=== PATIENT | male | born 1930 | race Caucasian/White ===

== ENCOUNTER 2017-03-22 15:04 | Inpatient (IN) | payer OTHER ==
[~2017-03-22] VITALS: Ht 175.3 cm; Wt 58.5 kg
[~2017-03-22 15:04] MED LIST: ADULT LOW DOSE81 MG PO
[2017-03-22 16:24] LABS: ABSOLUTE BASOPHILS 0.1 thou/uL (0.0-0.2); ABSOLUTE EOSINOPHILS 0.4 thou/uL (0.0-0.7); ABSOLUTE LYMPHOCYTES 1.7 thou/uL (0.8-5.3); ABSOLUTE MONOCYTES 1.2 thou/uL (0.0-1.2); BASOPHILS 1.1 %; EOSINOPHILS 3.5 %; HEMATOCRIT 39.6 % (42.0-52.0); HEMOGLOBIN 13.1 gm/dL (14.0-18.0); LYMPHOCYTES 14.7 %; MCH 32.3 pg (26.0-34.0); MCHC 33.1 g/dL (28.0-37.0); MCV 97.5 fL (80.0-100.0); MONOCYTES 10.8 %; MPV 7.3 fl. (7.2-11.1); NUCLEATED RBCS 0 /100WBC; PLATELET COUNT* 256 thou/uL (150-400); POLYS 69.9 %; RBC 4.06 mil/uL (4.50-6.00); RDW-CV 15.3 % (10.5-14.5); WBC 11.4 thou/uL (4.0-11.0)
[2017-03-22 16:45] LABS: ALBUMIN 4.1 g/dL (3.4-5.0); CALCIUM 9.4 mg/dL (8.5-10.1); CREATININE 2.3 mg/dL (0.6-1.3); POTASSIUM 4.4 mmol/L (3.5-5.1); TOTAL BILIRUBIN 0.8 mg/dL (<0.1-1.0); TOTAL PROTEIN 7.6 g/dL (6.4-8.2)
[2017-03-22] MEDS ORDERED: ADVAIR HFA 230M12 GM INH (17:35)
[2017-03-22] MEDS ORDERED: PENTOXIFYLLINE400 MG PO (17:37)
[2017-03-23 00:50] VITALS: BP 145/85
[2017-03-23 04:54] LABS: CALCIUM 8.6 mg/dL (8.5-10.1); CREATININE 2.2 mg/dL (0.6-1.3); POTASSIUM 4.3 mmol/L (3.5-5.1)
[2017-03-23 05:10] LABS: ABSOLUTE BASOPHILS 0.1 thou/uL (0.0-0.2); ABSOLUTE EOSINOPHILS 0.5 thou/uL (0.0-0.7); ABSOLUTE NEUTROPHILS 6.2 thou/uL (1.6-8.1); BASOPHILS 1.1 %; EOSINOPHILS 5.5 %; HEMOGLOBIN 12.4 gm/dL (14.0-18.0); LYMPHOCYTES 20.2 %; MCH 32.6 pg (26.0-34.0); MCHC 33.4 g/dL (28.0-37.0); MCV 97.4 fL (80.0-100.0); NUCLEATED RBCS 0 /100WBC; PLATELET COUNT* 232 thou/uL (150-400); POLYS 63.2 %; RDW-CV 15.2 % (10.5-14.5); WBC 9.8 thou/uL (4.0-11.0)
[2017-03-23 07:30] VITALS: BP 184/58
[2017-03-23 07:50] VITALS: BP 112/70
[2017-03-23 08:30] VITALS: BP 137/96
[2017-03-23 16:44] VITALS: BP 136/83
--- NOTE | 2017-03-23 17:19 | 2DMMODE ---
[place] [address] 2 D/M-MODE ECHOCARDIOGRAM Name: KRISTIN PEDERSON Room: [address] IN [facility]#: [id number] Admission: 03/22/17 Attend Phys: Justin Lemus Discharge: Date of : 32 Date of Service: 03/23/17 1718 Report #: [id number] THIS REPORT FOR: //name// APPROVED REPORT Study performed: 03/23/2017 15:32:10 EXAM: Comprehensive 2D, Doppler, and color-flow Echocardiogram Patient Location: In-Patient Room #: [facility] Status: routine BSA: 1.71 HR: 90 bpm BP: 145/85 mmHg Rhythm: NSR Other Information Study Quality: Good Indications Congestive Heart Failure Left Ventricle The left ventricle is normal size. There is normal LV segmental wall motion. Mild concentric left ventricular hypertrophy. Left ventricular systolic function is normal. The left ventricular ejection fraction is within the normal range. LVEF is 60-65%. Grade I - abnormal relaxation pattern. Right Ventricle The right ventricle is normal size. The right ventricular systolic function is normal. Atria The left atrium size is normal. Right atrium is moderately dilated. Aortic Valve The aortic valve is normal in structure. No aortic regurgitation is present. There is no aortic valvular stenosis. Mitral Valve The mitral valve is normal in structure. Trace mitral regurgitation. No evidence of [place] [address] 2 D/M-MODE ECHOCARDIOGRAM Name: KRISTIN PEDERSON Room: [address] IN M.R.#: [id number] Admission: 03/22/17 Attend Phys: Justin Lemus Discharge: Date of : 32 Date of Service: 03/23/171717 Report #: [id number] Tricuspid Valve The tricuspid valve is normal in structure. Moderate tricuspid regurgitation. estimated pa pressure 70 mm Hg Pulmonic Valve The pulmonary valve is normal in structure. There is no pulmonic valvular regurgitation. Great Vessels Aortic root is mildly dilated. IVC is normal in size and collapses with >50% inspiration Pericardium There is no pericardial effusion. <Conclusion> LVEF is 60-65%. Mild concentric left ventricular hypertrophy. Right atrium is moderately dilated. Moderate tricuspid regurgitation. estimated pa pressure 70 mm Hg <ELECTRONICALLY SIGNED> By: Nathan Shah MD, FACC 03/23/171717 17 17 Nathan Shah MD, FACC /INF
[2017-03-24 00:23] VITALS: BP 158/78
[2017-03-24 04:30] LABS: ABSOLUTE BASOPHILS 0.1 thou/uL (0.0-0.2); ABSOLUTE EOSINOPHILS 0.3 thou/uL (0.0-0.7); ABSOLUTE LYMPHOCYTES 1.3 thou/uL (0.8-5.3); ABSOLUTE MONOCYTES 0.9 thou/uL (0.0-1.2); ABSOLUTE NEUTROPHILS 8.6 thou/uL (1.6-8.1); BASOPHILS 0.7 %; EOSINOPHILS 2.8 %; HEMATOCRIT 32.1 % (42.0-52.0); LYMPHOCYTES 11.3 %; MCH 32.1 pg (26.0-34.0); MCHC 32.6 g/dL (28.0-37.0); MCV 98.7 fL (80.0-100.0); MONOCYTES 8.4 %; MPV 7.7 fl. (7.2-11.1); NUCLEATED RBCS 0 /100WBC; PLATELET COUNT* 185 thou/uL (150-400); POLYS 76.8 %; RBC 3.25 mil/uL (4.50-6.00); RDW-CV 14.9 % (10.5-14.5); WBC 11.3 thou/uL (4.0-11.0)
[2017-03-24 04:33] LABS: HEMOGLOBIN 10.4 gm/dL (14.0-18.0)
[2017-03-24 04:48] LABS: CREATININE 2.1 mg/dL (0.6-1.3); POTASSIUM 4.7 mmol/L (3.5-5.1)
[2017-03-24 07:44] VITALS: BP 151/91
--- NOTE | 2017-03-24 10:51 | CON ---
[address] [address] CONSULTATION Name: DACIAKRISTIN Louis Room: [address] IN .R.#: [id number] Admission: 03/22/17 Attend Phys: Gonzalo Cheng Discharge: Date of : 31 Report #: [id number] THIS REPORT FOR: //name// CC: Nathan Lemus DATE OF SERVICE: 03/23/2017 INFECTIOUS DISEASE CONSULTATION ATTENDING PHYSICIAN: Justin Lemus DO. REASON FOR CONSULTATION: Osteomyelitis involving the third digit, left foot, in the setting of compromised perfusion with probable osteomyelitis. HISTORY OF PRESENT ILLNESS: Chart reviewed, the patient examined. This is an 86-year-old with known vasculopathy, including peripheral disease, who developed a distal plantar ulceration involving the third left toe. Over the course of the last 3-4 weeks, he had an increasing pain associated with the limb in general. It is not clear whether he has fevers. Notes a dry eschar, without significant drainage. He has had significant anorexia and a fairly lengthy period of gradual weight loss. Denies significant pulmonary-related complaints, although he does utilize oxygen at night in the setting of COPD. No GI-related complaints either. He was admitted and undergoing vascular evaluation. Doppler studies consistent with occlusion of the kbh-up-mrgraj superficial femoral arteries bilaterally. There is a 5.9-cm abdominal aortic aneurysm, which has increased and there is a large amount of peripheral mural thrombus as well. He has been empirically started on antibiotics with vancomycin. ALLERGIES: None known. MEDICATIONS: Currently as noted above, the vancomycin, p.r.n. analgesics, antiemetics, zolpidem, ipratropium and albuterol inhaler and nicotine patch. PAST MEDICAL HISTORY: COPD, peripheral vascular disease, and now psychiatric history. SOCIAL HISTORY: He still smokes 4-5 cigarettes a day. No ethanol. No illicit drug use. FAMILY HISTORY: Noncontributory. REVIEW OF SYSTEMS: Denies any changes overall in pulmonary or gastrointestinal status. PHYSICAL EXAMINATION: [place] [address] CONSULTATION Name: DACIAKRISTIN Louis Room: [address] IN [facility]#: [id number] Admission: 03/22/17 Attend Phys: Gonzalo Cheng Discharge: Date of : 31 Report #: [id number] GENERAL: He appears his stated age. He is perhaps mildly undernourished, evidence of the weight loss. He is pleasant and cooperative. He is not encephalopathic. He is in knip-as-onqfdpus distress. VITAL SIGNS: Temperature 98.3, pulse 83, respirations 16 and blood pressure 145/85. SKIN: Warm. HEENT: Otherwise, unremarkable. He has nasal cannula oxygen in place. NECK: Supple. LUNGS: Diminished breath sounds. He has a few crackles at the bases posteriorly. HEART: Regular. There is a soft systolic murmur. ABDOMEN: Soft, nontender and nondistended. No peritoneal signs. EXTREMITIES: Distal left lower extremity has moderate degree of inflammation noted superficially. He has edema 1 to 2+. He is not exquisitely tender, but has a distal third involving the plantar aspect. Mild degree of hammertoe. There is primarily a dry eschar. There is no particular odor, no drainage. GENITOURINARY: Deferred. RECTAL: Deferred. LABORATORY DATA: NT-proBNP of 3170. Dopplers, as described above, probably aortic aneurysm via Doppler. Prealbumin at 22.7. CBC: White count 9.8, H and H 12.4 and 37.0 and platelets 232,000. Electrolytes, sodium 144, potassium 4.4, chloride 105, bicarbonate is elevated at 37, anion gap of 2 and BUN and creatinine 49 and 2.3, repeat was 46 and 2.2. Estimated GFR of 29. LFTs unremarkable. Albumin of 4.1. Total protein 7.6. ASSESSMENT AND PLAN: Chronic ulceration involving the third distal toe in the setting of a fairly significant limb ischemia. Awaiting Vascular Surgery recommendations. He voiced concern about any PICC procedures given his age and may be a candidate for percutaneous approach with angioplasty or stenting. We will continue the empiric antibiotics. There is a vancomycin level pending. We will adjust therapy as needed. At this point, I do not think there is anything that should be reasonable to culture if in fact they try to do some debridements. We will try to obtain a deep culture. We will go ahead and get plain films of the foot. However, simply trauma and/or ischemia could give you similar-type pictures that of osteomyelitis. <ELECTRONICALLY SIGNED> By: Alex Almaraz MD 03/24/17 1051 1456 0005Alex Almaraz MD /xiomara
[2017-03-24 12:29] LABS: URINE BILIRUBIN NEGATIVE (Negative); URINE BLOOD NEGATIVE (Negative); URINE CLARITY CLEAR; URINE COLOR YELLOW; URINE GLUCOSE-RANDOM NEGATIVE (Negative); URINE KETONES NEGATIVE (Negative); URINE LEUKOCYTES-REFLEX NEGATIVE (Negative); URINE NITRITE-REFLEX NEGATIVE (Negative); URINE PROTEIN NEGATIVE (Negative); URINE SPECIFIC GRAVITY 1.025 (1.005-1.030); URINE UROBILINOGEN 0.2 E.U./dl (0.2-1.0)
[2017-03-24 14:26] VITALS: BP 151/91
[2017-03-24] MEDS ORDERED: MINOCIN100 MG PO (14:34)
[2017-03-24] MEDS ORDERED: NORCO 5-325 TA1 EACH PO (14:35)
[2017-03-24] MEDS ORDERED: NICOTINE TRANSD21 M1 TRANSDERM (14:35)
[2017-04-01] MEDS ORDERED: PLAVIX 75 MG TA75 M1 PO (12:24)
[2017-04-01] MEDS ORDERED: ASPIR 8181 MG PO (12:25)
[2017-04-01] MEDS ORDERED: MINOCIN100 MG PO (12:26)
[2017-04-01] MEDS ORDERED: APAP650 PO (12:27)
--- NOTE | 2017-04-01 16:00 | CON ---
[address] [address] CONSULTATION Name: DACIAKRISTIN Louis Room: [address] IN [facility].#: [id number] Admission: 03/22/17 Attend Phys: Gonzalo Cheng Discharge: 03/24/17 Date of : 31 Report #: [id number] THIS REPORT FOR: //name// CC: Nathan Lemus DICTATED BY: Natasha SARAH DATE OF SERVICE: 03/22/2017 REASON FOR CONSULTATION: Peripheral artery disease, left lower extremity ischemia, abdominal aortic aneurysm. HISTORY OF PRESENT ILLNESS: The patient is a pleasant 86-year-old female who presented to the hospital today with complaints of left foot pain. He reports his pain has significantly worsened over the past 3 weeks. He has noted discoloration of his toes, more notably in the left third toe. He reports significant left foot pain with his legs elevated or even with sitting. He reports he has to stand to relieve his discomfort. He does very little walking, which he attributes to chronic lung disease with shortness of air as well as claudication. He reports he was evaluated at approximately 10 years ago at [facility] for an abdominal aortic aneurysm as well as peripheral artery disease and opted against treatment at that time. He denies any nausea, vomiting, fevers, chills or worsening shortness of breath. He does wear oxygen at night for his chronic obstructive pulmonary disease. We have been asked to evaluate the patient and give our opinion regarding his ischemic left foot as well as his abdominal aortic aneurysm and his chronic peripheral artery disease. PAST MEDICAL HISTORY: 1. Abdominal aortic aneurysm. 2. Peripheral artery disease. 3. Chronic obstructive pulmonary disease. 4. Right inguinal hernia. 5. Arthritis. PAST SURGICAL HISTORY: Right inguinal hernia repair. ALLERGIES: No known drug allergies. HOME MEDICATIONS: Please refer to the MAR. FAMILY HISTORY: Reviewed, noncontributory due to his advanced age. SOCIAL HISTORY: He is , lives with his . [place] [address] CONSULTATION Name: DACIAKRISTIN Louis Room: [address]#: [id number] Admission: 03/22/17 Attend Phys: Gonzalo Cheng Discharge: 03/24/17 Date of : 31 Report #: [id number] REVIEW OF SYSTEMS: A 12-point review of systems has been reviewed and is negative except for the above-mentioned in the history of present illness. PHYSICAL EXAMINATION: VITAL SIGNS: Reviewed and on the chart. He is afebrile. GENERAL: He is alert and oriented, in no acute distress. He is thin. HEENT: Head is normocephalic, atraumatic. NECK: Supple without jugular venous distention. HEART: Distant heart tones, regular rate. CHEST: Lung sounds are diminished throughout. No wheezing or rhonchi noted. ABDOMEN: Soft, nontender. He has a palpable pulsatile mass on the left side of his abdomen. Positive bowel sounds. EXTREMITIES: Palpable bilateral radial and femoral pulses with dopplerable bilateral dorsalis pedis pulses. He has a 2+ edema to the right lower extremity, 1+ edema on the left. He has a purple discoloration of his left toes, most notably of the third toe with a small superficial ulcer on the distal left third toe tip. His feet are neuromotor intact. NEUROLOGIC: Alert and oriented with no focal neurologic deficits. LABORATORY DATA: Hemoglobin 13.1, hematocrit 39.6, white blood cell count 11.4, platelets 256. Sodium 144, potassium 4.4, chloride 105, CO2 of 37, BUN 49, creatinine 2.3, glucose is 83. ASSESSMENT AND PLAN: 1. Peripheral artery disease with ischemia of the left foot. We will obtain bilateral arterial ultrasounds as well as ABIs for further evaluation of his arterial perfusion. His creatinine is 2.3, so we were unable to obtain a CT angiogram with runoff at this time. He is not wanting to undergo any major surgical intervention, although he is willing to consider minimally invasive procedures such as an arteriogram. Dr. Branch will evaluate the patient as well and adjust treatment plan as indicated. Likely, he will need an arteriogram at this admission. 2. Abdominal aortic aneurysm, previously measured 4.7 cm in 2010. We will obtain an abdominal ultrasound for further evaluation. He denies any current abdominal or back pain. His aneurysm is palpable, but nontender. 3. Chronic obstructive pulmonary disease. 4. Tobaccoism. We thank you for the opportunity to participate in the care of the patient. Please feel free to contact our office with any questions or concerns. <ELECTRONICALLY SIGNED> By: Sammy Branch DO 04/01/17 1600 1711 0419Sammy Branch DO /nt
[2017-04-05] MEDS ORDERED: CENTRUM SILVER1 EAC2 PO (12:55)
== END 2017-03-24 15:00 | disposition home or self-care (01) | DRG 300 ==
LOC: M.ORTHSURG 15:04
PROVIDERS: Specialist; ADMIT Internal Medicine
DX: I70.202 Unspecified atherosclerosis of native arteries of extremities, left leg (principal); N18.4 Chronic kidney disease, stage 4 (severe); I50.32 Chronic diastolic (congestive) heart failure; I71.4 Abdominal aortic aneurysm, without rupture; J44.9 Chronic obstructive pulmonary disease, unspecified; M19.90 Unspecified osteoarthritis, unspecified site; F17.210 Nicotine dependence, cigarettes, uncomplicated; L97.529 Non-pressure chronic ulcer of other part of left foot with unspecified severity

== ENCOUNTER → 2017-04-01 | Outpatient (CLI) | payer OTHER ==
[~2017-04-01] VITALS: Ht 175.3 cm; Wt 59.0 kg
[~2017-04-01] MED LIST changes: +ADVAIR HFA 230M12 GM INH; +APAP650 PO; +ASPIR 8181 MG PO; +CENTRUM SILVER1 EAC2 PO; +MINOCIN100 MG PO; +NICOTINE TRANSD21 M1 TRANSDERM; +NORCO 5-325 TA1 EACH PO; +PENTOXIFYLLINE400 MG PO; +PLAVIX 75 MG TA75 M1 PO; +TRAMADOL 50 MG50 MG PO
[2017-04-01 12:11] LABS: HEMATOCRIT 40.1 % (42.0-52.0); HEMOGLOBIN 13.2 gm/dL (14.0-18.0); MCH 32.4 pg (26.0-34.0); MCHC 32.8 g/dL (28.0-37.0); MPV 7.7 fl. (7.2-11.1); RBC 4.06 mil/uL (4.50-6.00); RDW-CV 15.1 % (10.5-14.5); WBC 11.4 thou/uL (4.0-11.0)
[2017-04-01 12:17] LABS: POTASSIUM 4.4 mmol/L (3.5-5.1)
[2017-04-01 12:20] LABS: APTT 26.3 Seconds (25.0-31.3); INR 1.1; PROTIME 10.7 Seconds (9.20-11.50)
[2017-04-01 12:22] LABS: CREATININE 1.7 mg/dL (0.6-1.3)
[2017-04-01 15:00] VITALS: BP 130/70
[2017-04-01 15:06] VITALS: BP 132/72
[2017-04-01 15:42] VITALS: BP 162/78
[2017-04-01 16:01] VITALS: BP 147/78
[2017-04-01 16:40] VITALS: BP 145/78
--- NOTE | 2017-04-06 15:34 | OP ---
[facility] [address] [place] [address] OPERATIVE REPORT Name: DACIAKRISTIN Myers Room: [facility]#: [id number] Admission: 04/01/17 Attend Phys: Gonzalo Caldwell Discharge: Date of : 31 Report #: [id number] THIS REPORT FOR: //name// CC: Nathan Branch DATE OF SERVICE: 04/01/2017 PREOPERATIVE DIAGNOSES: Peripheral vascular disease and gangrene, left lower extremity. POSTOPERATIVE DIAGNOSES: Peripheral vascular disease and gangrene, left lower extremity. SURGEON: Sammy Branch DO KIDNEY PULLER: Bozena Galvez PA-C ANESTHESIA: Moderate sedation. ESTIMATED BLOOD LOSS: 20 mL SPECIMEN: None. COMPLICATIONS: None. CONDITION: Stable. DISPOSITION: Home. PROCEDURE: 1. Ultrasound-guided access, right common femoral artery. 2. Aortogram and left lower extremity angiogram with primarily CO2 and minimal contrast. 3. Left lower extremity angiogram catheter position third order. 4. Limited angiogram, right common femoral artery. 5. Angio-Seal closure, right common femoral artery. RADIOGRAPHIC FINDINGS: CO2 angiography of the aorta was limited due to a CO2 being retained within a large aneurysm. The renal arteries could not be visualized. The outline of the aortic bifurcation was able to be visualized, but only because of the second area of calcification. A limited angiogram of the left iliac system was performed with 20% contrast, which demonstrated the common iliac, external and internal iliacs to be patent. The external iliac artery was very tortuous. The aortic bifurcation was wide. [address] [address] OPERATIVE REPORT Name: KRISTIN PEDERSON Room: [facility]#: [id number] Admission: 04/01/17 Attend Phys: Gonzalo Caldwell Discharge: Date of : 31 Report #: [id number] Left lower extremity angiogram with CO2 and minimal contrast also demonstrated a left SFA flush occlusion. The common femoral artery and profunda vessels were widely patent, reconstitution above the knee at Gomez canal was identified and the popliteal artery appeared widely patent. There was a widely patent tibial vessels below the knee without significant stenosis or occlusion. A limited angiogram of the right common femoral artery demonstrated no extravasation of contrast or concern for bleeding. It appeared appropriate for Angio-Seal closure. INDICATIONS FOR THE PROCEDURE AND CONSENT: The patient is an 86-year-old male who presented with gangrene of his left second and third toe. He was known to have an abdominal aortic aneurysm and renal insufficiency, underwent lower extremity duplexes which demonstrated SFA occlusion. A noncontrast CT scan was performed due to his renal insufficiency. 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 The patient does not wish to have any further intervention regarding his aneurysm. He is aware of his age at 86 years old and wants to limit interventions. He does have a significant rest pain of his left foot with gangrene and does wish to proceed with intervention to get out of pain and for wound healing. Risks and benefits were discussed with the patient including infection, bleeding, inability to cross the lesion, need for additional procedures such as bypass or amputation. The patient wished to proceed, was consented and scheduled. PROCEDURE IN DETAIL: After timeout was performed, the patient was placed in supine position. Sterile prep and drape of the anterior abdomen, bilateral groins, bilateral thighs. Ultrasound was utilized to identify the right common femoral artery and Seldinger technique used to place 6-Citizen [place] sheath. Glidewire Advantage and UF catheter were advanced into the infrarenal aorta and a CO2 angiogram attempted. This demonstrated the above findings. CO2 was primarily trapped within the aortic aneurysm and did not visualize the iliacs well. I then retracted my catheter to the aortic bifurcation and used 20% contrast to try and visualize the patency of the left iliac artery. This was demonstrated. I then used a Glidewire Advantage and Omniflush catheter trying it up and over. I was unable to advance the Glidewire Advantage beyond the common iliac artery due to the severe tortuosity of both iliac systems. I then exchanged for a regular 260 Glidewire; with significant effort, was able to negotiate it into the left common femoral artery. I was unable, however, to advance the UF catheter over the aortic bifurcation as the stiffness of the catheter would just flip into the aorta. I then exchanged for a seeker catheter. This was also unable to be advanced over the wire due to the tortuosity. I then exchanged the 6-Citizen [place] sheath for up and over 6-Citizen [place] sheath and attempted to dodder the sheath over Omniflush catheter over the Glidewire. This was modestly successful. I was able to get the catheter up over the bifurcation, but was still not able to advance the catheter beyond the common iliac artery. [address] [place] [address] OPERATIVE REPORT Name: KRISTIN PEDERSON Room: [facility] [place]#: [id number] Admission: 04/01/17 Attend Phys: Gonzalo Caldwell Discharge: Date of : 31 Report #: [id number] Ultimately combination of the 6-Citizen [place] up and over sheath and a bare catheter and regular Glidewire, was able to get at least to the external iliac artery. I could not get beyond this. I then performed angiogram of the left lower extremity and demonstrated the above findings. There was a flush occlusion of the SFA and I felt that even if I was able to get up and over to the superficial femoral artery, it would be difficult to break its top gap. It has been known since at least 2008. A retrograde popliteal access was also considered, but I discussed the patient on the table that I felt bypass was the best option for long-term patency and results as well as decreasing his need for contrast and complications. The patient agreed that he would consider this. Therefore, the sheath was retracted in the right external iliac artery and limited angiogram performed. This appeared appropriate for Angio-Seal closure. A 6-Citizen [place] Angio-Seal was then obtained and deployed in standard fashion. Pressure was held for hemostasis. The patient tolerated the procedure well. All lap, needle and instrument counts were correct. <ELECTRONICALLY SIGNED> By: Sammy Branch DO 04/06/17 1534 1614 1833Sammy Branch DO /nt
== END | disposition home or self-care (01) ==
LOC: M.INT 11:00
PROVIDERS: Surgery
DX: I70.261 Atherosclerosis of native arteries of extremities with gangrene, right leg (principal); J44.9 Chronic obstructive pulmonary disease, unspecified; I71.4 Abdominal aortic aneurysm, without rupture; Z79.82 Long term (current) use of aspirin; Z79.899 Other long term (current) drug therapy; Z98.890 Other specified postprocedural states; Z79.01 Long term (current) use of anticoagulants

== ENCOUNTER 2017-04-08 08:37 | Inpatient (IN) | payer OTHER ==
[~2017-04-08] VITALS: Ht 175.3 cm; Wt 666.0 kg
[~2017-04-08 08:37] MED LIST changes: -TRAMADOL 50 MG50 MG PO
--- NOTE | 2017-04-08 10:41 | EKG ---
[place] [address] ELECTROCARDIOGRAM REPORT Name: DACIAKRISTIN Myers Room: [place] [address] ADM IN [facility].#: [id number] Admission: 04/08/17 Attend Phys: Gonzalo Cheng Discharge: Date of : 31 Report #: [id number] THIS REPORT FOR: //name// [facility] Test Date: 2017-04-08 Test Time: 10:27:52 Pat Name: KRISTIN PEDERSON Department: Room: [place] [address] Gender: M [employer]: : 1930 Requested By: Sammy Branch Order Number: [id number] Rosales MD: Nathan Shah Measurements Intervals Warner Rate: 85 P: 76 SD: 159 QRS: -68 QRSD: 157 T: 34 QT: 429 QTc: 511 Interpretive Statements Sinus rhythm Atrial premature complexes RBBB and LAFB Consider left ventricular hypertrophy Baseline wander in lead(s) II,III,aVF,V4 Compared to ECG 05/03/2006 09:05:46 Atrial premature complex(es) now present Right bundle-branch block now present Ventricular premature complex(es) no longer present Electronically Signed On 04-08-2017 10:41:21 MILL MACHINIST by Nathan Shah [email or web address] <ELECTRONICALLY SIGNED> By: Nathan Shah MD, FAC 04/08/17 1041 1027 1027 Nathan Shah MD, [facility] /EPI
[2017-04-08 16:30] LABS: HEMATOCRIT 23.7 % (42.0-52.0); HEMOGLOBIN 7.7 gm/dL (14.0-18.0)
[2017-04-08 16:37] LABS: CREATININE 1.7 mg/dL (0.6-1.3); POTASSIUM 4.8 mmol/L (3.5-5.1)
[2017-04-08 17:44] VITALS: BP 111/59; BP 122/73; BP 124/85
[2017-04-08 18:00] VITALS: BP 143/80
[2017-04-08 21:00] VITALS: BP 116/53
[2017-04-08 22:00] VITALS: BP 109/54
[2017-04-08 23:00] VITALS: BP 108/45
[2017-04-09] VITALS (16 sets, daily range): BP systolic 112–1137; BP diastolic 63–87
[2017-04-09 04:45] LABS: HEMATOCRIT 25.2 % (42.0-52.0); HEMOGLOBIN 8.2 gm/dL (14.0-18.0); MCH 30.6 pg (26.0-34.0); MCHC 32.7 g/dL (28.0-37.0); MCV 93.5 fL (80.0-100.0); RBC 2.69 mil/uL (4.50-6.00); RDW-CV 20.6 % (10.5-14.5); WBC 15.1 thou/uL (4.0-11.0)
[2017-04-09 04:58] LABS: CALCIUM 7.6 mg/dL (8.5-10.1); CREATININE 1.9 mg/dL (0.6-1.3); POTASSIUM 5.1 mmol/L (3.5-5.1)
[2017-04-09] MEDS ORDERED: TRAMADOL 50 MG50 MG PO (08:18)
--- NOTE | 2017-04-09 12:01 | EKG ---
[place] [address] ELECTROCARDIOGRAM REPORT Name: KRISTIN PEDERSON Room: [address] ADM IN M.R.#: [id number] Admission: 04/08/17 Attend Phys: Gonzalo Cheng Discharge: Date of : 31 Report #: [id number] THIS REPORT FOR: //name// [facility] Test Date: 2017-04-09 Test Time: 00:33:40 Pat Name: KRISTIN PEDERSON Department: Room: [address] Gender: M Fondant Cooker: UNK : 1930 Requested By: Justin Lemus Order Number: [id number] Reading MD: Danilo Ugalde Measurements Intervals [place] Rate: 75 P: 65 ME: 146 QRS: -51 QRSD: 140 T: 61 QT: 467 QTc: 522 Interpretive Statements Sinus rhythm, anterior FL Multiple premature complexes, vent & supraven RBBB and LAFB LVH by voltage Compared to ECG 04/08/2017 10:27:52 Atrial premature complex(es) no longer present Electronically Signed On 04-09-2017 12:01:43 PATCH MACHINE OPERATOR by Danilo Ugalde [email or web address] <ELECTRONICALLY SIGNED> By: Danilo Ugalde MD, [facility] 04/09/17 1201 0033 0033 Danilo Ugalde MD, [facility] /EPI
[2017-04-10 00:02] VITALS: BP 141/65
[2017-04-10 04:00] VITALS: BP 139/63
[2017-04-10 07:30] VITALS: BP 151/90
--- NOTE | 2017-04-11 11:11 | S ---
[address] [address] SURGICAL PATH RPT PROCEDURE Name: KRISTIN PEDERSON Room: [address] IN ..#: [id number] Admission: 04/08/17 Date of : 31 Discharge: 04/10/17 Report #: [id number] Path Case #: [id number] PATHOLOGY REPORT COLLECTION DATE: 04/08/2017 RECEIVED DATE: 04/08/2017 SUBMITTING PHYS: Dr. Sammy Branch OTHER PHYS: Dr. Nathan Lemus SPECIMEN(S) RECEIVED: A.L popliteal plaque * * * * * * * * * * * * FINAL DIAGNOSIS: Left popliteal plaque: - Fibrointimal atherosclerotic plaque with prominent calcification and metaplastic bone formation. (ZAHRA:pit; 04/11/2017) PATHOLOGIST: Davi Singh M.D. REPORT ELECTRONICALLY SIGNED BY: Davi Singh M.D. DATE/TIME: 04/11/2017 11:11 * * * * * * * * * * * * GROSS PATHOLOGY: Received in formalin labeled "Kristin Pederson left popliteal plaque" is a 2.8 x 0.7 x 0.6 cm aggregate of adhikari-white calcified soft tissue fragments. The largest portion consists of a cylindrical tube of tissue, measuring 2.7 cm in length and 0.6 cm in diameter. The remaining portions range from 0.4-1.2 cm in greatest dimension. Upon sectioning, the largest portion of tissue is comprised of 80% calcifications. Needle Loom Weaver sections of the specimen are submitted in cassette A1 following decalcification. ([facility]; 04/10/2017) CLINICAL HISTORY: Atherosclerosis of arteries of extremities. INITIAL CPT CODE(S): A; 78974, 24181 Professional services [place] [address] Technical services performed by [facility] at [address] [place] [address] SURGICAL PATH RPT PROCEDURE Name: KRISTIN PEDERSON Room: [address]#: [id number] Admission: 04/08/17 Date of : 31 Discharge: 04/10/17 Report #: [id number] Path Case #: [id number] [place] [address]. [facility] [address] [place] [address] PHONE: [phone] DIRECTOR: Myron Cohen M.D. * * * END OF REPORT * * *
--- NOTE | 2017-04-20 08:57 | OP ---
[facility] [address] [place] [address] OPERATIVE REPORT Name: DACIAKRISTIN Louis Room: [address] IN ..#: [id number] Admission: 04/08/17 Attend Phys: Gonzalo Cheng Discharge: 04/10/17 Date of : 32 Report #: [id number] THIS REPORT FOR: //name// CC: Nathan Lemus DATE OF SERVICE: 04/08/2017 PREOPERATIVE DIAGNOSIS: Peripheral vascular disease with rest pain, left lower extremity and severe claudication. POSTOPERATIVE DIAGNOSIS: Peripheral vascular disease with rest pain, left lower extremity and severe claudication. SURGEON: Sammy Branch DO GEAR FINISHER: Bozena Galvez PA-C ANESTHESIA: General endotracheal anesthesia. PROCEDURE: 1. Fem above knee popliteal bypass with 8 mm ringed PTFE. 2. Endarterectomy, distal superficial femoral artery. ESTIMATED BLOOD LOSS: 400 mL. SPECIMEN: Plaque. COMPLICATIONS: None. CONDITION: Stable. DISPOSITION: ICU. INDICATIONS FOR THE PROCEDURE AND CONSENT: The patient is an 86-year-old male with severe peripheral vascular disease with bilateral SFA occlusions. The patient also was known to have a large abdominal aortic aneurysm. He has severe pain of his left lower extremity, underwent angiography; however, due to his large aortic aneurysm and tortuosity of his iliacs, it was difficult to get up and over to attempt crossing his complete SFA occlusion. It was determined that bypass was a better route. Risks and benefits of this were discussed with the patient including infection, bleeding, nonresolution of his symptoms, stroke, heart attack, . The patient wished to proceed, was consented and scheduled. PROCEDURE IN DETAIL: After timeout was performed, [place] [address] OPERATIVE REPORT Name: KRISTIN PEDERSON Room: [address] IN [facility].#: [id number] Admission: 04/08/17 Attend Phys: Gonzalo Cheng Discharge: 04/10/17 Date of : 32 Report #: [id number] supine position with circumferential sterile prep and drape of left lower extremity. Longitudinal incision was made in the medial aspect of the left thigh and dissection carried down using Bovie electrocautery. The superficial femoral artery was identified and encircled with a vessel loop. There was noted to have trickle flow in the mid portion of the wound and a better flow distally. Additional superficial femoral artery was dissected sharply and a large vessel loop and circled distally. At this point, attention was turned to the common femoral artery. A small transverse incision was made and dissection carried down using Bovie electrocautery and Metzenbaum scissors. Common femoral artery was identified and circled proximally and distally with vessel loop. The patient was systemically heparinized with 6000 units of heparin, allowed to circulate for 3 minutes. A tunneler was used to tunnel an 8-mm PTFE graft between the 2 locations. Attention was turned to the distal anastomosis. The distal superficial femoral artery and proximal popliteal artery were then clamped with small profunda clamps. An 11 blade and Solis scissors were used to make a longitudinal arteriotomy. This area was heavily calcified proximally and this was part of the area that was most suitable for bypass. Therefore, this proximal area was endarterectomized. Distally the flap was tacked with 6-0 Prolene. The plaque was then sent as specimen. I then noted back bleeding from the distal superficial femoral artery, popliteal artery. I then using 5-0 Prolene in circumferential fashion performed an end-to-side anastomosis fashioning the PTFE as a sánchez. I did not tie the sutures at the end, left them with a suture boot. I packed the wound with a moist laparotomy pad. I then turned attention to the proximal anastomosis. The femoral artery was clamped proximally and distally with a profunda clamp. An 11 blade and Solis scissors were used to make a longitudinal arteriotomy slightly laterally to accommodate a good lie. The graft was then cut to length and then hooded and sutured in place using 5-0 Prolene suture in circumferential fashion. The graft was then clamped and blood flow was restored to the [place] vessel. The anastomosis was noted to be fairly hemostatic with a suture hole bleeding only. The wound was then packed with a wet laparotomy pad and then attention turned back to the distal anastomosis. The distal clamp was removed and it was noted to backbleed well. Once again reclamped this and then flushed the graft and reclamped the graft. I then completed the anastomosis and tied the sutures. I then discussed with Anesthesia, additional heparin approximately 10-15 minutes before this and we had given an additional 1000 units. I also discussed with Anesthesia that his blood pressure, which was adequate for releasing the bypass and bypass flow was allowed. This was noted to have a very brisk suture hole bleeding from pretty much every suture hole of the anastomosis. There was no bleeding between sutures and it appeared to be a proper anastomosis. This was significant oozing and the blood appeared thin. I packed the wound with laparotomy pads and after checking Doppler signals with the bypass working, I then administered 50 units of protamine over 15 minutes. I also requested we find BioGlue for the room in case that was required as it appeared to be significant suture hole bleeding. None was available at our institution and I requested that be carried from another hospital in case if it is still required for [place] [address] OPERATIVE REPORT Name: KRISTIN PEDERSON Room: [address] [place] .R.#: [id number] Admission: 04/08/17 Attend Phys: Gonzalo Cheng Discharge: 04/10/17 Date of : 32 Report #: [id number] control. I used Surgicel as well as Gelfoam and thrombin in the area while BioGlue is being obtained. With these hemostatic agents in place, I held pressure for approximately 45 minutes and although the suture hole bleeding slowed, it was not complete and there was still fairly significant ooze. Once the BioGlue arrived, I did utilize it in the area by clamping the graft and the artery proximally and distally briefly to keep the area dry, applied BioGlue along the anastomosis and allowed it to dry. I then restored blood flow through the graft and noted the bypasses to be patent with excellent brisk flow distal to the bypass. It was multiphasic. BioGlue did stop the hemorrhage. Of note, likely more than two-thirds of the blood loss from the procedure was secondary to a delay in obtaining BioGlue. After I was satisfied with hemostasis, the wounds were irrigated and closed in layers using 2-0 Vicryl, 3-0 Vicryl and 4-0 Monocryl suture and Dermabond dressing was applied. The patient tolerated the procedure well. All lap, needle and instrument counts were correct. The patient was transferred to PACU in stable and extubated condition. <ELECTRONICALLY SIGNED> By: Sammy Branch DO 04/20/17 [id number] Branch DO /nt
== END 2017-04-10 18:15 | disposition home or self-care (01) | DRG 253 ==
LOC: M.PRE 08:37 → M.TBA 09:30 → M.PRE 12:47 → M.ICU 17:29 → M.PRE 18:40 → M.ICU 04-09 16:10 → M.2W 04-09 18:44
PROVIDERS: Surgery; ADMIT Internal Medicine
PROC: 30233N1 Transfusion of Nonautologous Red Blood Cells into Peripheral Vein, Percutaneous Approach (ICD-10-PCS; principal; 2017-04-08)
PROC: 04CL0ZZ Extirpation of Matter from Left Femoral Artery, Open Approach (ICD-10-PCS; principal; 2017-04-08)
PROC: 041L0JL Bypass Left Femoral Artery to Popliteal Artery with Synthetic Substitute, Open Approach (ICD-10-PCS; principal; 2017-04-08)
DX: I73.9 Peripheral vascular disease, unspecified (principal); D62 Acute posthemorrhagic anemia; N18.4 Chronic kidney disease, stage 4 (severe); J98.11 Atelectasis; J44.9 Chronic obstructive pulmonary disease, unspecified; F32.9 Major depressive disorder, single episode, unspecified; F17.210 Nicotine dependence, cigarettes, uncomplicated; I71.4 Abdominal aortic aneurysm, without rupture

== ENCOUNTER → 2017-05-25 | Outpatient (CLI) | payer OTHER ==
[~2017-05-25] MED LIST changes: +TRAMADOL 50 MG50 MG PO
== END ==
LOC: M.WC 08:48
DX: T81.89XA Other complications of procedures, not elsewhere classified, initial encounter (principal); I70.245 Atherosclerosis of native arteries of left leg with ulceration of other part of foot; L97.521 Non-pressure chronic ulcer of other part of left foot limited to breakdown of skin; J43.9 Emphysema, unspecified; F17.210 Nicotine dependence, cigarettes, uncomplicated; Y92.89 Other specified places as the place of occurrence of the external cause; Y83.8 Other surgical procedures as the cause of abnormal reaction of the patient, or of later complication, without mention of misadventure at the time of the procedure

== ENCOUNTER → 2017-06-13 | Outpatient (CLI) | payer OTHER | LOC: M.WC 00:06 | DX: T81.31XD Disruption of external operation (surgical) wound, not elsewhere classified, subsequent encounter (principal); I70.245 Atherosclerosis of native arteries of left leg with ulceration of other part of foot; L97.521 Non-pressure chronic ulcer of other part of left foot limited to breakdown of skin; I73.9 Peripheral vascular disease, unspecified; J43.9 Emphysema, unspecified; F17.200 Nicotine dependence, unspecified, uncomplicated; Y83.8 Other surgical procedures as the cause of abnormal reaction of the patient, or of later complication, without mention of misadventure at the time of the procedure ==

== ENCOUNTER → 2017-06-21 | Outpatient (CLI) | payer OTHER | LOC: M.WC 14:00 | DX: T81.89XD Other complications of procedures, not elsewhere classified, subsequent encounter (principal); I70.245 Atherosclerosis of native arteries of left leg with ulceration of other part of foot; L97.521 Non-pressure chronic ulcer of other part of left foot limited to breakdown of skin; I73.9 Peripheral vascular disease, unspecified; J43.9 Emphysema, unspecified; F17.210 Nicotine dependence, cigarettes, uncomplicated; Y83.8 Other surgical procedures as the cause of abnormal reaction of the patient, or of later complication, without mention of misadventure at the time of the procedure ==

== ENCOUNTER → 2017-07-05 | Outpatient (CLI) | payer OTHER | LOC: M.WC 02:13 | DX: T81.89XD Other complications of procedures, not elsewhere classified, subsequent encounter (principal); I70.245 Atherosclerosis of native arteries of left leg with ulceration of other part of foot; L97.521 Non-pressure chronic ulcer of other part of left foot limited to breakdown of skin; I73.9 Peripheral vascular disease, unspecified; J43.9 Emphysema, unspecified; F17.210 Nicotine dependence, cigarettes, uncomplicated; Y83.8 Other surgical procedures as the cause of abnormal reaction of the patient, or of later complication, without mention of misadventure at the time of the procedure ==

== ENCOUNTER → 2017-07-13 | Outpatient (CLI) | payer OTHER | LOC: M.WC 04:14 | DX: T81.31XD Disruption of external operation (surgical) wound, not elsewhere classified, subsequent encounter (principal); I70.245 Atherosclerosis of native arteries of left leg with ulceration of other part of foot; L97.521 Non-pressure chronic ulcer of other part of left foot limited to breakdown of skin; L76.34 Postprocedural seroma of skin and subcutaneous tissue following other procedure; F17.210 Nicotine dependence, cigarettes, uncomplicated; J43.9 Emphysema, unspecified; Y83.8 Other surgical procedures as the cause of abnormal reaction of the patient, or of later complication, without mention of misadventure at the time of the procedure ==

== ENCOUNTER → 2017-07-27 | Outpatient (CLI) | payer OTHER | LOC: M.WC 00:38 | DX: T81.89XD Other complications of procedures, not elsewhere classified, subsequent encounter (principal); I70.345 Atherosclerosis of unspecified type of bypass graft(s) of the left leg with ulceration of other part of foot; L97.521 Non-pressure chronic ulcer of other part of left foot limited to breakdown of skin; L76.34 Postprocedural seroma of skin and subcutaneous tissue following other procedure; J43.9 Emphysema, unspecified; F17.210 Nicotine dependence, cigarettes, uncomplicated; Y83.8 Other surgical procedures as the cause of abnormal reaction of the patient, or of later complication, without mention of misadventure at the time of the procedure ==

== ENCOUNTER → 2017-08-24 | Outpatient (CLI) | payer OTHER | LOC: M.WC 04:38 | DX: T81.31XD Disruption of external operation (surgical) wound, not elsewhere classified, subsequent encounter (principal); I70.345 Atherosclerosis of unspecified type of bypass graft(s) of the left leg with ulceration of other part of foot; L97.521 Non-pressure chronic ulcer of other part of left foot limited to breakdown of skin; J43.8 Other emphysema; F17.210 Nicotine dependence, cigarettes, uncomplicated; Y83.8 Other surgical procedures as the cause of abnormal reaction of the patient, or of later complication, without mention of misadventure at the time of the procedure ==

== ENCOUNTER → 2017-08-31 | Outpatient (CLI) | payer OTHER | LOC: M.WC 05:11 | DX: T81.31XD Disruption of external operation (surgical) wound, not elsewhere classified, subsequent encounter (principal); I70.74 Atherosclerosis of other type of bypass graft(s) of the left leg with ulceration; L97.521 Non-pressure chronic ulcer of other part of left foot limited to breakdown of skin; J43.9 Emphysema, unspecified; F17.210 Nicotine dependence, cigarettes, uncomplicated; Y83.8 Other surgical procedures as the cause of abnormal reaction of the patient, or of later complication, without mention of misadventure at the time of the procedure ==

== ENCOUNTER → 2017-09-07 | Outpatient (CLI) | payer OTHER | LOC: M.WC 04:47 | DX: T81.31XD Disruption of external operation (surgical) wound, not elsewhere classified, subsequent encounter (principal); I70.345 Atherosclerosis of unspecified type of bypass graft(s) of the left leg with ulceration of other part of foot; L97.521 Non-pressure chronic ulcer of other part of left foot limited to breakdown of skin; J43.9 Emphysema, unspecified; F17.210 Nicotine dependence, cigarettes, uncomplicated; Y83.8 Other surgical procedures as the cause of abnormal reaction of the patient, or of later complication, without mention of misadventure at the time of the procedure ==

== ENCOUNTER → 2017-09-14 | Outpatient (CLI) | payer OTHER | LOC: M.WC 02:59 | DX: T81.89XD Other complications of procedures, not elsewhere classified, subsequent encounter (principal); I70.345 Atherosclerosis of unspecified type of bypass graft(s) of the left leg with ulceration of other part of foot; L97.521 Non-pressure chronic ulcer of other part of left foot limited to breakdown of skin; J43.9 Emphysema, unspecified; F17.210 Nicotine dependence, cigarettes, uncomplicated; Y83.8 Other surgical procedures as the cause of abnormal reaction of the patient, or of later complication, without mention of misadventure at the time of the procedure ==

== ENCOUNTER → 2017-09-21 | Outpatient (CLI) | payer OTHER | LOC: M.WC 04:08 | DX: I70.345 Atherosclerosis of unspecified type of bypass graft(s) of the left leg with ulceration of other part of foot (principal); L97.521 Non-pressure chronic ulcer of other part of left foot limited to breakdown of skin; J43.9 Emphysema, unspecified; F17.210 Nicotine dependence, cigarettes, uncomplicated ==

== ENCOUNTER → 2017-10-12 | Outpatient (CLI) | payer OTHER | LOC: M.WC 04:35 | DX: T81.31XD Disruption of external operation (surgical) wound, not elsewhere classified, subsequent encounter (principal); I70.345 Atherosclerosis of unspecified type of bypass graft(s) of the left leg with ulceration of other part of foot; L97.521 Non-pressure chronic ulcer of other part of left foot limited to breakdown of skin; E11.51 Type 2 diabetes mellitus with diabetic peripheral angiopathy without gangrene; J43.9 Emphysema, unspecified; L76.34 Postprocedural seroma of skin and subcutaneous tissue following other procedure; F17.210 Nicotine dependence, cigarettes, uncomplicated; Y83.8 Other surgical procedures as the cause of abnormal reaction of the patient, or of later complication, without mention of misadventure at the time of the procedure ==

== ENCOUNTER → 2017-11-02 | Outpatient (CLI) | payer OTHER | LOC: M.WC 05:19 | DX: T81.31XD Disruption of external operation (surgical) wound, not elsewhere classified, subsequent encounter (principal); I70.345 Atherosclerosis of unspecified type of bypass graft(s) of the left leg with ulceration of other part of foot; L76.34 Postprocedural seroma of skin and subcutaneous tissue following other procedure; J43.9 Emphysema, unspecified; F17.200 Nicotine dependence, unspecified, uncomplicated; Z95.820 Peripheral vascular angioplasty status with implants and grafts; Y83.8 Other surgical procedures as the cause of abnormal reaction of the patient, or of later complication, without mention of misadventure at the time of the procedure ==

== ENCOUNTER → 2017-11-23 | Outpatient (CLI) | payer OTHER | LOC: M.WC 01:55 | DX: T86.828 Other complications of skin graft (allograft) (autograft) (principal); I70.345 Atherosclerosis of unspecified type of bypass graft(s) of the left leg with ulceration of other part of foot; L97.528 Non-pressure chronic ulcer of other part of left foot with other specified severity; J43.9 Emphysema, unspecified; F17.200 Nicotine dependence, unspecified, uncomplicated; Y83.2 Surgical operation with anastomosis, bypass or graft as the cause of abnormal reaction of the patient, or of later complication, without mention of misadventure at the time of the procedure ==